=== PATIENT | male | born 1940 | race Caucasian/White ===

== ENCOUNTER 2017-07-20 09:46 | Inpatient (IN) | payer MEDICARE ==
[2017-07-19 15:39] LABS: BASOPHILS % (AUTO) 0.4 % (0-1); EOSINOPHILS # (AUTO) 0.2 X10'3 (0-0.9); EOSINOPHILS % (AUTO) 2.9 % (0-6); LYMPHOCYTES # (AUTO) 2.1 X10'3 (1.1-4.8); MEAN CORPUSCULAR HEMOGLOBIN 30.2 PG (27.0-31.0); MEAN CORPUSCULAR HGB CONC 34.6 % (33.0-36.5); MEAN CORPUSCULAR VOLUME 87.4 FL (78-98); MONOCYTES # (AUTO) 0.5 X10'3 (0-0.9); MONOCYTES % (AUTO) 7.1 % (2-12); NEUTROPHILS # (AUTO) 4.4 X10'3 (1.8-7.7); NEUTROPHILS % (AUTO) 60.6 % (42-75); PRE OP HEMATOCRIT 47.9 % (42.0-52.0); PRE OP HEMOGLOBIN 16.6 g/dL (14.0-17.9); PRE OP PLATELET COUNT 308 X10'3 (140-440); RED BLOOD COUNT 5.48 X10'6 (4.70-6.10); RED CELL DISTRIBUTION WIDTH 12.9 % (11.5-14.5)
[2017-07-19 15:43] LABS: CLARITY,URINE CLEAR (Clear); COLOR,URINE YELLOW (Yellow); GLUCOSE, URINE NEGATIVE (Neg); KETONES,URINE NEGATIVE (Neg); LEUKOCYTE ESTERASE ,URINE NEGATIVE (Neg); NITRITES, URINE NEGATIVE (Neg); OCCULT BLOOD,URINE NEGATIVE (Neg); PROTEIN,URINE NEGATIVE (Neg); UROBILINOGEN,URINE 0.2 E.U/dL (0.2-1.0)
[2017-07-19 15:51] LABS: UA COLLECTION TYPE CLN CATCH MIDSTREAM
[2017-07-19 15:53] LABS: HEMOGLOBIN A1C 5.7 % (4.5-6.2)
[2017-07-19 15:54] LABS: ALBUMIN 3.5 G/DL (3.4-5.0); ALBUMIN/GLOBULIN RATIO 0.9 (1.1-1.5); ALKALINE PHOSPHATASE 105 IU/L (46-116); BLOOD UREA NITROGEN 22 MG/DL (7-18); BUN/CREATININE RATIO 23.2 (5.4-32.0); CALCIUM 9.2 MG/DL (8.5-10.1); CHLORIDE 106 MMOL/L (99-107); CREATININE 0.95 MG/DL (0.60-1.10); PRE OP ALT 61 U/L (30-65); PRE OP ANION GAP 13 (8-16); PRE OP AST 38 U/L (10-37); PRE OP BILIRUB, TOTAL 0.4 MG/DL (0.0-1.0); PRE OP GLUCOSE 102 MG/DL (70-104); PRE OP POTASSIUM 3.9 MMOL/L (3.4-5.1); PRE OP SODIUM 142 MMOL/L (135-145); TOTAL CARBON DIOXIDE 23.4 MMOL/L (24-32); TOTAL PROTEIN 7.4 G/DL (6.4-8.2); eGFR 77 ML/MIN
[~2017-07-20] VITALS: Ht 182.9 cm; Wt 104.3 kg
[2017-07-20] VITALS (29 sets, daily range): BP systolic 115–157; BP diastolic 57–105
[~2017-07-20 09:46] MED LIST: AMLO10TA13; DICL75TA6; HYDR-3972; LOVA40TA2; METF500T4; PANT40TA4; TRAM50TA2; ZOLP10TA5
[2017-07-20] MEDS: potassium cl 20mEq in 1/2 NS 1,000 ML IV SCH ×2 (10:17→23:55)
[2017-07-20] MEDS ORDERED: acetaminophen 325mg tablet PO PRN (10:20)
[2017-07-20] MEDS ORDERED: diphenhydrAMINE 25mg capsule PO PRN ×2 (10:20)
[2017-07-20] MEDS ORDERED: bisacodyl 10mg suppository rectal RC PRN (10:20)
[2017-07-20] MEDS ORDERED: magnesium hydroxide 30ml (MOM) UD suspension PO PRN (10:20)
[2017-07-20] MEDS ORDERED: MORPHINE 2MG in 2ml NS syringe IV PRN (10:20)
[2017-07-20] MEDS ORDERED: famotidine 20mg tablet PO ONE (10:30)
[2017-07-20] MEDS ORDERED: celeCOXIB 100mg capsule PO ONE (10:30)
[2017-07-20] MEDS ORDERED: metoclopramide 5 mg/ml inj IV ONE (10:30)
[2017-07-20] MEDS ORDERED: acetaminophen 325mg tablet PO ONE (10:30)
[2017-07-20] MEDS ORDERED: cefazolin/dext.iso 2gm/50ml 50 ML IV ONE (10:30)
[2017-07-20] MEDS ORDERED: ringers solution, lacted 1,000 ML IV SCH ×2 (10:30→13:03)
[2017-07-20] MEDS ORDERED: oxyCODONE SR 10mg (sust. release) tab PO ONE (10:30)
[2017-07-20] MEDS ORDERED: gabapentin 300mg capsule PO ONE (10:30)
[2017-07-20] MEDS ORDERED: HYDROcodone/acetaminophen 10/325mg tab PO ONE (10:35)
[2017-07-20] MEDS ORDERED: LIDOcaine 1% (10mg/ml) 2ml vial ONE (10:40)
[2017-07-20] MEDS ORDERED: ceFAZolin 2gm in dextrose, iso 100 ML IV ONE (10:55)
[2017-07-20] MEDS ORDERED: MIDAZolam 5mg/5ml vial ONE (10:59)
[2017-07-20] MEDS: ceFAZolin 2gm in dextrose, iso 100 ML IV SCH ×2 (11:00→23:57)
[2017-07-20] MEDS ORDERED: fentaNYL /PF 50mcg/ml 5ml ampule ONE (11:01)
[2017-07-20] MEDS ORDERED: BUPIVAcaine/dex-water/PF 7.5 mg/ml 2ml ampul ONE (11:01)
[2017-07-20] MEDS ORDERED: succinylcholine 20mg/ml inj IV ONE (11:57)
[2017-07-20] MEDS ORDERED: rocuronium 10mg/ml inj IV ONE (11:58)
[2017-07-20] MEDS ORDERED: propofol inj 20 ML IV ONE (11:59)
[2017-07-20] MEDS ORDERED: LIDOcaine 1%/PF (10mg/ml) 5ml vial ONE (11:59)
[2017-07-20] MEDS ORDERED: LIDOcaine 2% 5ml jelly ONE (12:01)
[2017-07-20] MEDS ORDERED: vancomycin 1,000mg inj ONE (12:05)
[2017-07-20] MEDS ORDERED: epiNEPHrine 1 mg/ml inj ONE (12:05)
[2017-07-20] MEDS ORDERED: cloNIDine hcl/PF 100mcg/ml inj ONE (12:05)
[2017-07-20] MEDS ORDERED: ketorolac trometh. 30mg/ml inj. ONE (12:05)
[2017-07-20] MEDS ORDERED: ROPIVAcaine 0.5% (5mg/ml) 30ml vial ONE (12:05)
[2017-07-20] MEDS ORDERED: tranexamic acid inj. 1,000 MG in normal saline 100ml IV soln 100 ML IV ONE (12:20)
[2017-07-20] MEDS ORDERED: sevoflurane 250ml liquid IH ONE (12:21)
[2017-07-20] MEDS ORDERED: ePHEDrine 50MG/ML INJ. ONE (12:21)
[2017-07-20] MEDS: gabapentin 300mg capsule PO SCH ×2 (13:00→21:34)
[2017-07-20] MEDS ORDERED: acetaminophen 1,000mg/100ml IV 100 ML IV PRN (13:05)
[2017-07-20] MEDS ORDERED: ondansetron/PF 4mg/2ml inj IV PRN ×2 (13:05)
[2017-07-20] MEDS ORDERED: HYDROmorphone inj. 0.5 MG/0.5 ML DISP.SYRIN IV PRN (13:05)
[2017-07-20] MEDS ORDERED: ondansetron/PF 4mg/2ml inj ONE (13:26)
[2017-07-20] MEDS ORDERED: neostigmine methylsulfate 1 MG/ML 10ml vial ONE (13:32)
[2017-07-20] MEDS ORDERED: glycopyrrolate 0.2mg/ml inj ONE (13:32)
[2017-07-20] MEDS ORDERED: morphine 4 MG/ML inj SYRINge IV ONE ×2 (14:30→14:45)
[2017-07-20] MEDS ORDERED: morphine 4 MG/ML inj SYRINge IV PRN (14:44)
[2017-07-20] MEDS: oxyCODONE/APAP 10/325mg tablet PO PRN ×2 (15:10→21:57)
[2017-07-20] MEDS ORDERED: CADD PCA waste documentation MC PRN (15:40)
[2017-07-20] MEDS ORDERED: naloxone 0.4 mg/ml inj IV PRN (15:40)
[2017-07-20] MEDS ORDERED: ceFAZolin inj. 2,000 MG in normal saline 100ml IV soln 100 ML IV SCH (16:00)
[2017-07-20] MEDS: HYDROmorphone/NS 1 mg/ml CADD 50 ML IV SCH ×5 (16:01→23:00)
[2017-07-20] MEDS: ondansetron/PF 4mg/2ml inj IV PRN (20:03)
[2017-07-20] MEDS: sennosides 8.6mg tablet PO SCH (21:34)
[2017-07-20] MEDS: amLODIPine 5mg tablet PO SCH (21:34)
[2017-07-20] MEDS: ascorbic acid 500mg tablet PO SCH (21:58)
[2017-07-21] MEDS: HYDROmorphone/NS 1 mg/ml CADD 50 ML IV SCH (01:00)
[2017-07-21 02:00] VITALS: BP 150/87
[2017-07-21] MEDS: potassium cl 20mEq in 1/2 NS 1,000 ML IV SCH ×3 (02:17→18:17)
[2017-07-21] MEDS: ondansetron/PF 4mg/2ml inj IV PRN ×3 (02:18→15:28)
[2017-07-21] MEDS: oxyCODONE/APAP 10/325mg tablet PO PRN ×5 (02:18→23:06)
[2017-07-21] MEDS ORDERED: vancomycin inj 1,500 MG in normal saline 300ml IV soln IV ONE (05:30)
[2017-07-21 05:51] LABS: BASOPHILS % (AUTO) 0.2 % (0-1); EOSINOPHILS # (AUTO) 0.2 X10'3 (0-0.9); EOSINOPHILS % (AUTO) 2.5 % (0-6); HEMATOCRIT 39.7 % (42.0-52.0); HEMOGLOBIN 13.7 g/dl (14.0-17.9); LYMPHOCYTES % (AUTO) 11.1 % (21-51); MEAN CORPUSCULAR HEMOGLOBIN 30.7 PG (27.0-31.0); MEAN CORPUSCULAR HGB CONC 34.6 % (33.0-36.5); MEAN CORPUSCULAR VOLUME 88.9 FL (78-98); MEAN PLATELET VOLUME 7.8 FL (7.4-10.4); MONOCYTES # (AUTO) 0.6 X10'3 (0-0.9); MONOCYTES % (AUTO) 6.9 % (2-12); NEUTROPHILS # (AUTO) 6.8 X10'3 (1.8-7.7); NEUTROPHILS % (AUTO) 79.3 % (42-75); PLATELET COUNT 245 X10'3 (140-440); RED BLOOD COUNT 4.47 X10'6 (4.70-6.10); RED CELL DISTRIBUTION WIDTH 13.1 % (11.5-14.5); WHITE BLOOD COUNT 8.6 X10'3 (4.5-11.0)
[2017-07-21 05:58] LABS: ANION GAP 7 (8-16); CHLORIDE 107 MMOL/L (99-107); POTASSIUM 4.1 MMOL/L (3.5-5.1); SODIUM 140 MMOL/L (135-145); TOTAL CARBON DIOXIDE 25.8 MMOL/L (24-32)
[2017-07-21 06:00] VITALS: BP 118/81
[2017-07-21] MEDS: gabapentin 300mg capsule PO SCH ×3 (07:50→20:51)
[2017-07-21] MEDS: aspirin 325mg tablet PO SCH (07:50)
[2017-07-21] MEDS: multivitamins, therapeutics tablet PO SCH (07:51)
[2017-07-21] MEDS: ascorbic acid 500mg tablet PO SCH ×2 (07:51→20:51)
[2017-07-21 10:16] VITALS: BP 130/72
[2017-07-21 18:00] VITALS: BP 130/88
[2017-07-21] MEDS ORDERED: Protein Smoothie (high protein) 240ml (8oz) cup PO SCH (18:00)
[2017-07-21] MEDS: amLODIPine 5mg tablet PO SCH (20:52)
[2017-07-21] MEDS: sennosides 8.6mg tablet PO SCH (20:52)
[2017-07-21] MEDS ORDERED: pantoprazole 40mg Tablet.DR PO SCH (21:00)
[2017-07-21] MEDS ORDERED: metFORMIN 500mg tablet PO SCH (21:00)
[2017-07-21 22:00] VITALS: BP 130/67
[2017-07-22] MEDS: potassium cl 20mEq in 1/2 NS 1,000 ML IV SCH (02:17)
[2017-07-22] MEDS: oxyCODONE/APAP 10/325mg tablet PO PRN ×2 (05:23→08:54)
[2017-07-22 06:13] LABS: BASOPHILS % (AUTO) 0.3 % (0-1); EOSINOPHILS # (AUTO) 0.3 X10'3 (0-0.9); EOSINOPHILS % (AUTO) 2.1 % (0-6); HEMATOCRIT 40.8 % (42.0-52.0); HEMOGLOBIN 14.3 g/dl (14.0-17.9); LYMPHOCYTES # (AUTO) 1.5 X10'3 (1.1-4.8); LYMPHOCYTES % (AUTO) 11.5 % (21-51); MEAN CORPUSCULAR HEMOGLOBIN 30.8 PG (27.0-31.0); MEAN CORPUSCULAR HGB CONC 34.9 % (33.0-36.5); MEAN CORPUSCULAR VOLUME 88.2 FL (78-98); MEAN PLATELET VOLUME 8.4 FL (7.4-10.4); MONOCYTES % (AUTO) 7.7 % (2-12); NEUTROPHILS # (AUTO) 10.1 X10'3 (1.8-7.7); NEUTROPHILS % (AUTO) 78.4 % (42-75); PLATELET COUNT 273 X10'3 (140-440); RED BLOOD COUNT 4.63 X10'6 (4.70-6.10); WHITE BLOOD COUNT 12.9 X10'3 (4.5-11.0)
[2017-07-22] MEDS ORDERED: ASPI-1 PO (06:36)
[2017-07-22 06:49] VITALS: BP 126/68
[2017-07-22] MEDS ORDERED: WALKERFR (06:55)
[2017-07-22] MEDS: gabapentin 300mg capsule PO SCH (08:53)
[2017-07-22] MEDS: multivitamins, therapeutics tablet PO SCH (08:53)
[2017-07-22] MEDS: ascorbic acid 500mg tablet PO SCH (08:53)
[2017-07-22] MEDS: aspirin 325mg tablet PO SCH (08:54)
[2017-07-22 10:00] VITALS: BP 108/56
== END 2017-07-22 10:50 | disposition home or self-care (01) | DRG 470 ==
LOC: PAS IN 09:46 → EDSTATUS 11:15 → ORTHO 4S 20:00
PROVIDERS: ADMIT Orthopaedic Surgery; ATTEND Orthopaedic Surgery
PROC: 0SR906Z Replacement of Right Hip Joint with Oxidized Zirconium on Polyethylene Synthetic Substitute, Open Approach (ICD-10-PCS; principal; 2017-07-20 12:21)
DX: M16.11 Unilateral primary osteoarthritis, right hip (principal); E11.9 Type 2 diabetes mellitus without complications; M87.051 Idiopathic aseptic necrosis of right femur; D62 Acute posthemorrhagic anemia; K21.9 Gastro-esophageal reflux disease without esophagitis; M70.61 Trochanteric bursitis, right hip; M76.11 Psoas tendinitis, right hip; N40.0 Benign prostatic hyperplasia without lower urinary tract symptoms; E78.5 Hyperlipidemia, unspecified; I10 Essential (primary) hypertension; G89.29 Other chronic pain; M54.9 Dorsalgia, unspecified; Z79.899 Other long term (current) drug therapy; Z79.84 Long term (current) use of oral hypoglycemic drugs; Z79.82 Long term (current) use of aspirin
CPT/HCPCS: 36415; 71046; 72170; 80051; 80053; 81003; 82948; 83036; 84484; 85025; 86885; 86900; 86901; 87070; 97110; 97116; 97161; A7000; C1758; C1776; J0131; J0171; J0330; J0690; J0735; J1170; J1885; J2001; J2250; J2270; J2405; J2704; J2710; J2765; J2795; J3010; J3370; J3490; J7030; J7120

== ENCOUNTER 2021-03-18 10:36 | Emergency (ER) | payer MEDICARE ==
[~2021-03-18] VITALS: Ht 182.9 cm; Wt 102.5 kg
[~2021-03-18 10:36] MED LIST changes: +ASPI-1 PO; +METF-1203; -METF500T4; -PANT40TA4; +PANT40TA54; +WALKERFR
[2021-03-18 11:24] LABS: BASOPHILS % (AUTO) 0.5 % (0-1); EOSINOPHILS # (AUTO) 0.2 X10'3 (0-0.9); EOSINOPHILS % (AUTO) 1.9 % (0-6); HEMATOCRIT 41.6 % (42.0-52.0); HEMOGLOBIN 14.1 g/dl (14.0-17.9); LYMPHOCYTES # (AUTO) 1.7 X10'3 (1.1-4.8); LYMPHOCYTES % (AUTO) 19.5 % (21-51); MEAN CORPUSCULAR HGB CONC 34.1 g/dL (33.0-36.5); MEAN CORPUSCULAR VOLUME 88.2 FL (78-98); MEAN PLATELET VOLUME 7.7 FL (7.4-10.4); MONOCYTES # (AUTO) 0.6 X10'3 (0-0.9); MONOCYTES % (AUTO) 6.9 % (2-12); NEUTROPHILS # (AUTO) 6.1 X10'3 (1.8-7.7); NEUTROPHILS % (AUTO) 71.2 % (42-75); PLATELET COUNT 289 X10'3 (140-440); RED BLOOD COUNT 4.71 X10'6 (4.70-6.10); RED CELL DISTRIBUTION WIDTH 13.5 % (11.5-14.5); WHITE BLOOD COUNT 8.6 X10'3 (4.5-11.0)
[2021-03-18 12:13] LABS: ALANINE AMINOTRANSFERASE 25 U/L (12-78); ALBUMIN 3.3 G/DL (3.4-5.0); ALBUMIN/GLOBULIN RATIO 0.8 (1.1-1.5); ALKALINE PHOSPHATASE 138 IU/L (46-116); ASPARTATE AMINO TRANSFERASE 18 U/L (10-37); BILIRUBIN,TOTAL 0.4 MG/DL (0.1-1.0); BLOOD UREA NITROGEN 34 MG/DL (7-18); BUN/CREATININE RATIO 23.3 (5.4-32.0); CALCIUM 8.7 MG/DL (8.5-10.1); CREATININE 1.46 MG/DL (0.60-1.10); GLUCOSE 101 MG/DL (70-104); TOTAL CARBON DIOXIDE 22.7 MMOL/L (24-32); TOTAL PROTEIN 7.2 G/DL (6.4-8.2); eGFR 47 ML/MIN
[2021-03-18] MEDS ORDERED: iohexol 300mg/ml 100ml inj. ONE (12:36)
[2021-03-18 12:40] LABS: CHLORIDE 104 MMOL/L (99-107); POTASSIUM 4.6 MMOL/L (3.5-5.1)
[2021-03-18 12:41] LABS: ANION GAP 11 (8-16); SODIUM 138 MMOL/L (135-145)
[2021-03-18 13:43] VITALS: BP 125/67
[2021-03-18 14:26] LABS: CLARITY,URINE CLEAR (Clear); COLOR,URINE YELLOW (Yellow); GLUCOSE, URINE NEGATIVE (Neg); KETONES,URINE TRACE mg/dl (Neg); LEUKOCYTE ESTERASE ,URINE NEGATIVE (Neg); NITRITES, URINE NEGATIVE (Neg); OCCULT BLOOD,URINE NEGATIVE (Neg); PH,URINE 5.5 (4.8-8.0); PROTEIN,URINE NEGATIVE (Neg); UROBILINOGEN,URINE 0.2 E.U/dL (0.2-1.0)
[2021-03-18] MEDS ORDERED: MESSAGE TO NURSING PO SCH (14:33)
[2021-03-18 15:01] LABS: UA COLLECTION TYPE URINAL
[2021-03-18] MEDS ORDERED: AMOX-422 PO (15:02)
[2021-03-18] MEDS ORDERED: METR-159 PO (15:02)
[2021-03-18] MEDS ORDERED: ONDA4TAB6 PO (15:02)
[2021-03-18] MEDS ORDERED: HYDR-3965 PO (15:02)
== END 2021-03-18 15:27 | disposition home or self-care (01) ==
LOC: ER 10:37
DX: K57.92 Diverticulitis of intestine, part unspecified, without perforation or abscess without bleeding (principal); R73.03 Prediabetes; I48.91 Unspecified atrial fibrillation; I50.9 Heart failure, unspecified; Z87.19 Personal history of other diseases of the digestive system; Z90.49 Acquired absence of other specified parts of digestive tract; Z79.899 Other long term (current) drug therapy; Z79.2 Long term (current) use of antibiotics; Z79.82 Long term (current) use of aspirin
CPT/HCPCS: 36415; 74177; 80053; 81003; 85025; 99285; Q9967

== ENCOUNTER 2021-10-07 10:42 | Emergency (ER) | payer MEDICARE ==
[~2021-10-07] VITALS: Ht 182.9 cm; Wt 94.1 kg
[~2021-10-07 10:42] MED LIST changes: +ONDA4TAB6 PO
[2021-10-07 10:43] VITALS: BP 127/73
[2021-10-07 11:14] LABS: BASOPHILS % (AUTO) 0.4 % (0-1); EOSINOPHILS % (AUTO) 0.4 % (0-6); HEMATOCRIT 42.9 % (42.0-52.0); HEMOGLOBIN 14.7 g/dl (14.0-17.9); LYMPHOCYTES # (AUTO) 1.3 X10'3 (1.1-4.8); LYMPHOCYTES % (AUTO) 11.9 % (21-51); MEAN CORPUSCULAR HEMOGLOBIN 29.6 PG (27.0-31.0); MEAN CORPUSCULAR HGB CONC 34.3 g/dL (33.0-36.5); MEAN CORPUSCULAR VOLUME 86.5 FL (78-98); MEAN PLATELET VOLUME 7.5 FL (7.4-10.4); MONOCYTES # (AUTO) 0.8 X10'3 (0-0.9); MONOCYTES % (AUTO) 7.6 % (2-12); NEUTROPHILS # (AUTO) 8.7 X10'3 (1.8-7.7); NEUTROPHILS % (AUTO) 79.7 % (42-75); PLATELET COUNT 270 X10'3 (140-440); RED BLOOD COUNT 4.96 X10'6 (4.70-6.10); RED CELL DISTRIBUTION WIDTH 13.6 % (11.5-14.5); WHITE BLOOD COUNT 10.9 X10'3 (4.5-11.0)
[2021-10-07 11:25] LABS: ALANINE AMINOTRANSFERASE 19 U/L (12-78); ALBUMIN 2.9 G/DL (3.4-5.0); ALBUMIN/GLOBULIN RATIO 0.7 (1.1-1.5); ALKALINE PHOSPHATASE 134 IU/L (46-116); ANION GAP 9 (8-16); ASPARTATE AMINO TRANSFERASE 14 U/L (10-37); BILIRUBIN,TOTAL 0.5 MG/DL (0.1-1.0); BLOOD UREA NITROGEN 26 MG/DL (7-18); BUN/CREATININE RATIO 18.1 (5.4-32.0); CALCIUM 8.5 MG/DL (8.5-10.1); CHLORIDE 104 MMOL/L (99-107); CREATININE 1.44 MG/DL (0.60-1.10); GLUCOSE 94 MG/DL (70-104); POTASSIUM 4.3 MMOL/L (3.5-5.1); SODIUM 137 MMOL/L (135-145); TOTAL CARBON DIOXIDE 24.2 MMOL/L (24-32); TOTAL PROTEIN 6.8 G/DL (6.4-8.2); eGFR 47 ML/MIN
[2021-10-07] MEDS ORDERED: AMIO200T61 PO (16:13)
== END 2021-10-07 16:17 | disposition home or self-care (01) ==
LOC: ER 10:42
DX: R00.2 Palpitations (principal); R11.0 Nausea; R53.83 Other fatigue; R06.02 Shortness of breath; R42 Dizziness and giddiness; I10 Essential (primary) hypertension; I48.91 Unspecified atrial fibrillation; I50.9 Heart failure, unspecified; Z90.49 Acquired absence of other specified parts of digestive tract; Z79.82 Long term (current) use of aspirin; Z79.899 Other long term (current) drug therapy
CPT/HCPCS: 36415; 71045; 80053; 83880; 84484; 85025; 93005; 99285

== ENCOUNTER 2023-08-23 08:09 | Outpatient (CLI) | payer MEDICARE, MEDICAID | END 2023-08-23 23:59 | disposition home or self-care (01) | LOC: MRI 08:09 | PROVIDERS: ATTEND Pediatrics Sports Medicine | DX: M16.12 Unilateral primary osteoarthritis, left hip (principal); M70.62 Trochanteric bursitis, left hip; M89.8X8 Other specified disorders of bone, other site; M25.852 Other specified joint disorders, left hip; M25.552 Pain in left hip | CPT/HCPCS: 73721 ==

== ENCOUNTER 2023-12-16 18:16 | Emergency (ER) | payer MEDICARE, MEDICAID ==
[~2023-12-16] VITALS: Ht 175.3 cm; Wt 90.9 kg
[2023-12-16 18:38] LABS: BASOPHILS # (AUTO) 0.1 X10'3 (0-0.2); BASOPHILS % (AUTO) 0.5 % (0-1); EOSINOPHILS # (AUTO) 0.2 X10'3 (0-0.9); EOSINOPHILS % (AUTO) 1.3 % (0-6); HEMATOCRIT 45.5 % (42.0-52.0); HEMOGLOBIN 15.1 g/dl (14.0-17.9); LYMPHOCYTES # (AUTO) 2.3 X10'3 (1.1-4.8); LYMPHOCYTES % (AUTO) 17.2 % (21-51); MEAN CORPUSCULAR HGB CONC 33.2 g/dL (33.0-36.5); MEAN CORPUSCULAR VOLUME 93.2 FL (78-98); MEAN PLATELET VOLUME 7.8 FL (7.4-10.4); MONOCYTES # (AUTO) 0.8 X10'3 (0-0.9); NEUTROPHILS # (AUTO) 9.9 X10'3 (1.8-7.7); PLATELET COUNT 238 X10'3 (140-440); RED BLOOD COUNT 4.88 X10'6 (4.70-6.10); RED CELL DISTRIBUTION WIDTH 14.4 % (11.5-14.5); WHITE BLOOD COUNT 13.3 X10'3 (4.5-11.0)
[2023-12-16 19:05] LABS: ALBUMIN 3.6 G/DL (3.4-5.0); ANION GAP 5 (8-16); BLOOD UREA NITROGEN 21 MG/DL (7-18); BUN/CREATININE RATIO 14.7 (10.0-20.0); CALCIUM 9.3 MG/DL (8.5-10.1); CHLORIDE 109 MMOL/L (99-107); CREATININE 1.43 MG/DL (0.60-1.10); GLUCOSE 123 MG/DL (70-104); PRO BRAIN NATRIURETIC PEPTIDE 224 PG/ML (0-450); SODIUM 141 MMOL/L (135-145); TOTAL CARBON DIOXIDE 27.2 MMOL/L (24-32); eCRCL 40 ML/MIN; eGFR 47 ML/MIN
[2023-12-16] MEDS: LIDOcaine 2% Viscous 15ml cup MM ONE (21:06)
[2023-12-16] MEDS: mag hydrox/Alum hydrox/simeth 30ml oral suspension PO ONE (21:06)
[2023-12-16] MEDS: famotidine 20mg tablet PO ONE (21:39)
[2023-12-16] MEDS: ondansetron 4mg rapidly disintigrating tab PO ONE (21:40)
[2023-12-16] MEDS: HYDROcodone/acetaminophen 5mg/325mg tablet PO ONE (21:40)
[2023-12-16 21:57] LABS: ALANINE AMINOTRANSFERASE 24 U/L (12-78); ALBUMIN 3.2 G/DL (3.4-5.0); ALBUMIN/GLOBULIN RATIO 0.9 (1.1-1.5); ALKALINE PHOSPHATASE 134 IU/L (46-116); ANION GAP 11 (8-16); ASPARTATE AMINO TRANSFERASE 19 U/L (10-37); BILIRUBIN,TOTAL 0.7 MG/DL (0.1-1.0); BLOOD UREA NITROGEN 26 MG/DL (7-18); BUN/CREATININE RATIO 18.1 (10.0-20.0); CHLORIDE 108 MMOL/L (99-107); CREATININE 1.44 MG/DL (0.60-1.10); GLUCOSE 104 MG/DL (70-104); POTASSIUM 4.8 MMOL/L (3.5-5.1); SODIUM 142 MMOL/L (135-145); TOTAL CARBON DIOXIDE 23.3 MMOL/L (24-32); TOTAL PROTEIN 6.6 G/DL (6.4-8.2); eCRCL 40 ML/MIN; eGFR 47 ML/MIN
[2023-12-16 23:17] LABS: LIPASE 27 U/L (16-77)
[2023-12-16] MEDS ORDERED: OMEP-419 PO (23:47)
[2023-12-17 00:01] VITALS: BP 151/76; PULSE 62; RESP 15; TEMP 98.5; O2SAT 100
== END 2023-12-17 00:07 | disposition home or self-care (01) ==
LOC: ER 18:17
DX: R10.13 Epigastric pain (principal); I48.91 Unspecified atrial fibrillation; I50.9 Heart failure, unspecified; Z88.8 Allergy status to other drugs, medicaments and biological substances; Z79.899 Other long term (current) drug therapy; Z79.84 Long term (current) use of oral hypoglycemic drugs; Z79.82 Long term (current) use of aspirin; Z90.49 Acquired absence of other specified parts of digestive tract
CPT/HCPCS: 36415; 71045; 74176; 80048; 80053; 83690; 83880; 84484; 85025; 93005; 99285

== ENCOUNTER 2025-03-14 07:43 | Inpatient (IN) | payer MEDICARE, MEDICAID ==
[~2025-03-14] VITALS: Ht 162.6 cm; Wt 92.5 kg
[2025-03-14] VITALS (10 sets, daily range): BP systolic 132–140; BP diastolic 74–84; PULSE 70–85; RESP 13–24; TEMP 98.3–98.7; O2SAT 70–100
[~2025-03-14 07:43] MED LIST changes: -LOVA40TA2; +LOVA40TA2 PO; +OMEP-419 PO
--- NOTE | 2025-03-14 08:23 | Physician Documentation ---
History of Present Illness ~ Chief Complaint: Shortness of Breath Stated Complaint: PNEUMONIA Time Seen by MD: 07:53 OK to notify your PCP?: Yes Mode of Arrival: POV, Ambulatory HPI 84-year-old gentleman with a history of dyslipidemia, [id number] cognitive decline, COPD, CHF, atrial fibrillation on warfarin, hypertension, type 2 diabetes mellitus came in the emergency room because of dyspnea on exertion with cough with sputum expectoration of yellowish sputum and failure to turn around with outpatient medication including Z-Obey. The patient denies chest pain other than pleuritic chest pain. He did have fever but no chills but it got better. He is not able to lie flat because of difficulty breathing. No nausea vomiting diarrhea. Denies abdominal pain. No constipation or diarrhea. No trauma or injuries. Medication Reconciliation Allergies: Coded Allergies: doxycycline (Verified Allergy, Severe, 03/14/25) THINS BLOOD WHERE PREVIOUS DOCTOR SAID FALL WOULD BE VERY DANGEROUS nirmatrelvir (Verified Allergy, Severe, 03/14/25) CAUSED SEIZURE LIKE SYMPTOMS, WENT UNCONSCIOUS AND LOST MEMORY ritonavir (Verified Allergy, Severe, 03/14/25) CAUSED SEIZURE LIKE SYMPTOMS, WENT UNCONSCIOUS AND LOST MEMORY codeine (Verified Allergy, Unknown, 03/14/25) gabapentin (Verified Allergy, Unknown, 03/14/25) Scheduled Amiodarone Hcl (Cordarone), 1 TAB PO DAILY, (Reported) Atorvastatin Calcium (Atorvastatin Calcium), 1 TAB PO DAILY, (Reported) Budesonide/Formoterol Fumarate (Symbicort 80-4.5 Mcg Inhaler), 2 PUFFS INH Q12H Guaifenesin (Mucinex), 600 MG PO Q8H Levofloxacin (Levofloxacin), 1 TAB PO DAILY Levothyroxine Sodium (Levoxyl), 1 TAB PO DAILY, (Reported) Losartan Potassium (Losartan Potassium), 100 MG PO DAILY Pantoprazole Sodium (Pantoprazole Sodium), HS, (Reported) Prednisone (Prednisone), 0 PO BID Sertraline HCl (Sertraline HCl), 1 TAB PO DAILY, (Reported) Warfarin Sodium (Warfarin Sodium), 1 TAB PO DAILY, (Reported) Scheduled PRN Cyclobenzaprine HCl (Cyclobenzaprine HCl), 1 TAB PO HS PRN for pain, (Reported) albuterol inhaler (Pro-Air Inhaler), 1-2 PUFFS PO Q4H PRN for shortness of breath Miscellaneous Medications Tramadol Hcl (Tramadol Hcl), (Reported) Discontinued Medications Amlodipine Besylate (Amlodipine Besylate), HS, (Reported) Discontinued Reason: patient no longer taking Aspirin (Aspirin), 325 MG PO Q24H@0830 Discontinued Reason: patient no longer taking Diclofenac Sodium (Diclofenac Sodium), HS, (Reported) Discontinued Reason: patient no longer taking Hydrocodone Bit/Acetaminophen (Hydrocodon-Acetaminophn 10-325 tablet), (Reported) Discontinued Reason: patient no longer taking Metformin HCl (Metformin HCl), HS, (Reported) Discontinued Reason: patient no longer taking Omeprazole (Omeprazole), 1 TAB PO DAILY Discontinued Reason: patient no longer taking Ondansetron Hcl (Zofran), 1 TAB PO Q6H Discontinued Reason: patient no longer taking Zolpidem Tartrate* (Ambien*), (Reported) Durable Medical Equipment Walker, Front Wheeled (Walker, Front-wheeled), APPLIC, (DME) Past Medical History Past Medical History: Atrial Fibrillation, Congestive Heart Failure, Diverticulitis Past Surgical History: cholecystectomy Alcohol Use: None Drug Use: none Lives with: Family Lives In: Home Review of Systems ROS As stated above in the HPI, otherwise all systems are reviewed and negative. Physical Exam Vital Signs: Temperature: 97.8, Source: Oral, Heart Rate: 82, Respiratory Rate: 20, BP: 156/84, Pulse Oximetry: 97, Weight: 92.500 Oxygen Flow Rate: 0 Physical Exam Reviewed vital signs and they are well within normal range. Const: Not in pain but mild to moderate respiratory distress Head: Atraumatic Eyes: Normal Conjunctiva ENT: Normal External Ears, Nose and Mouth. Moist mucous membranes Neck: Full range of motion. No meningismus Resp: Diminished breath sounds with prolonged expiration bilaterally. Normal work of breathing Cardio: Regular rate and rhythm, no murmurs. Skin well perfused Abd: Soft, non-tender, non-distended. Normal bowel sounds. No rebound or guarding Skin: No petechiae or rashes. Warm and dry Back: No midline or flank tenderness Ext: No cyanosis, or edema Neuro: Awake and alert Psych: Normal Mood and Affect Procedures Additional Procedures Procedure Note ED MD interpretation of EKG done at 07:58 hours shows sinus rhythm at a rate of 76 with premature atrial complexes. Left axis deviation and normal intervals. No acute ischemic changes. Progress Results/Orders Results/Orders Orders - RITESH MITCHELL MD Chest,Single View (03/14/25 07:53) Monitor (03/14/25 07:53) Saline Lock (03/14/25 07:53) Oxygen (03/14/25 07:53) Electrocardiogram (03/14/25 07:53) Culture Blood (03/14/25 08:28) Svn Treatment (03/14/25 08:28) Covid19 Binax Poc Result Entry (03/14/25 08:28) Page Hospitalist (03/14/25 09:35) Completed Orders - RITESH MITCHELL MD Chest,Single View (03/14/25 07:53) Cbc/Diff (03/14/25 07:53) BMP (03/14/25 07:53) PBNP (03/14/25 07:53) Electrocardiogram (03/14/25 07:53) Hs Troponin I W Calculations (03/14/25 07:53) Hs Troponin I W Calculations (03/14/25 09:53) Hs Troponin I W Calculations (03/14/25 10:53) MG (03/14/25 08:07) Pt Inr (03/14/25 08:07) PTT (03/14/25 08:07) Procalcitonin (03/14/25 08:28) Influenza Type A&B Rapid Test (03/14/25 08:28) Lacticsepsis (03/14/25 08:28) Normal Saline 1000ml (0.9% Sodium Chlori (03/14/25 08:30) Methylprednisolone Sod Succ (Solumedrol (03/14/25 08:30) Ipratropium/Albuterol Nebule (Ipratrop/A (03/14/25 08:30) Ceftriaxone/Q4j-Lmcvphbt 1gm (Rocephin 1 (03/14/25 08:30) Ceftriaxone/U9p-Eovzvuez 1gm (Rocephin 1 (03/14/25 08:30) Levofloxacin-Levaquin 500mg/D5 (Levaquin (03/14/25 08:30) Ceftriaxone 2gm/D5w 50ml Bag (Rocephin 2 (03/14/25 09:10) Lactic,2hr (03/14/25 10:17) Vital Signs 03/14/25 03/14/25 03/14/25 03/14/25 07:49 08:07 08:20 09:03 Temp 97.8 Pulse 82 70 Resp 20 20 18 B/P (MAP) 156/84 Pulse Ox 97 99 70 O2 Delivery Room Air* Room Air* O2 Flow Rate 0 0 0 FiO2 21 N/A 03/14/25 03/14/25 09:03 09:18 Pulse 73 70 Resp 20 17 B/P (MAP) 140/76 (97) Pulse Ox 94 93 O2 Delivery Room Air* O2 Flow Rate 0 FiO2 N/A Laboratory Tests Test 03/14/25 08:13 03/14/25 09:18 03/14/25 09:45 03/14/25 09:46 White Blood Count 11.8 H Red Blood Count 4.81 Hemoglobin 14.6 Hematocrit 43.0 Mean Corpuscular Volume 89.4 Mean Corpuscular Hemoglobin 30.4 Mean Corpuscular Hemoglobin Concent 34.0 Red Cell Distribution Width 15.5 H Platelet Count 219 Mean Platelet Volume 7.3 L Neutrophils (%) (Auto) 87.9 H Lymphocytes (%) (Auto) 8.0 L Monocytes (%) (Auto) 3.4 Eosinophils (%) (Auto) 0.1 Basophils (%) (Auto) 0.6 Neutrophils # (Auto) 10.4 H Lymphocytes # (Auto) 0.9 L Monocytes # (Auto) 0.4 Eosinophils # (Auto) 0.0 Basophils # (Auto) 0.1 CBC Comment Prothrombin Time 18.4 H INR International Normalized Ratio 1.9 Activated Partial Thromboplast Time 33 H Coagulation Comments Sodium Level 140 Potassium Level 4.4 Chloride Level 107 Carbon Dioxide Level 25.4 Anion Gap 8 Blood Urea Nitrogen 25 H Creatinine 1.44 H Estimated GFR/1.73 m2 47 BUN/Creatinine Ratio 17.4 Glucose Level 112 H Lactic Acid Level 3.1 H Calcium Level 8.4 L Magnesium Level 2.1 Troponin I High Sensitivity 22 23 Pro-B-Type Natriuretic Peptide 420 Albumin 2.8 L Procalcitonin < 0.05 Chemistry Comments Troponin I High Sens Percent Delta 4 Troponin I Hi Sens Absolute Change 1 SARS-CoV-2 Antigen (Rapid) Negative Influenza Type A Antigen Negative Influenza Type B Antigen Negative Test 03/14/25 10:24 Troponin I High Sensitivity 26 Troponin I High Sens Percent Delta 13 Troponin I Hi Sens Absolute Change 3 Microbiology Date/Time Source Procedure Growth Status 03/14/25 09:18 Blood Arm Right Blood Culture - Preliminary NO GROWTH AFTER 3 DAYS Resulted Medical Decision Making Additional information obtaine: old records, family Findings During the physical examination, the findings suggestive of acute life- threatening condition such as JVD, tracheal deviation, acidotic breathing, noisy stridorous breath sounds, pulses paradoxus, muffled heart sounds, unequal breath sounds, abdominal rigidity and rebound tenderness, focal neurological deficits, cool clammy skin, severe hypotension, severe tachycardia or bradycardia are absent. My physical examination including my point of care ultrasound does not point to the diagnosis of congestive heart failure. The patient has been treated as an outpatient for five days and not improving. His lab results: WBC 11.8 H&H 14.6 and 43 platelets 219. Sodium 140 potassium 4.4 chloride 107 bicarb 25.4 BUN 25 creatinine one point 0 four and glucose 122. ProBNP is 420 and troponin is 22. His EKG is nonischemic. Chest x-ray does not show any acute cardiopulmonary process per radiologist. The patient was treated with IV antibiotics IV steroid and nebulization therapy and he does improved. Because of protracted nature of this acute exacerbation of COPD I will like to admit the patient. DISCLAIMER Inadvertent spelling and grammatical errors,inadvertent cut off machine operator errors,syntax errors, grammatical errors, and spelling errors are likely due to EMR/dictation software use and do not reflect on the overall quality of patient care. Note that the electronic time recorded on this note does not necessarily reflect the actual time of the patient encounter. Heart Score: 3 Differential Dx:Considerations: Include: bronchitis, CHF, COPD, myocardial infarction, pneumonia, pneumonitis, pneumothorax, pulmonary embolism, respiratory distress, upper resp. infection Departure Disposition: ADMITTED INPATIENT Impression: Primary Impression: Acute exacerbation of chronic obstructive airways disease Condition: Improved Referrals: NO PRIMARY CARE PROVIDER (PCP) Prescriptions albuterol inhaler (Pro-Air Inhaler) 8.5 Gm Inhaler 1-2 PUFFS PO Q4H PRN for shortness of breath, #1 INH Prov: EMMANUEL SCHMITZ, [facility] 03/17/25 Budesonide/Formoterol Fumarate (Symbicort 80-4.5 Mcg Inhaler) 80 Mcg-4.5 Mcg/Actuation Hfa.aer.ad 2 PUFFS INH Q12H for 30 Days, #2 UNIT 0 Refills Prov: EMMANUEL SCHMITZTIK, [facility] 03/17/25 Levofloxacin (Levofloxacin) 750 Mg Tablet 1 TAB PO DAILY for 5 Days, #5 TAB [facility]: [facility], [facility] 03/17/25 Guaifenesin (Mucinex) 600 Mg Tablet.sa 600 MG PO Q8H for 7 Days, #21 TAB.SR Prov: [facility], [facility] 03/17/25 Losartan Potassium (Losartan Potassium) 50 Mg Tablet 100 MG PO DAILY for 30 Days, #60 TAB Prov: YANEMMANUEL TAN JERAMY, [facility] 03/17/25 Prednisone (Prednisone) 10 Mg Tablet 0 PO BID for 30 Days, #70 TAB Take 4 tablets daily for next 5 days for pneumonia. Then continue back on prednisone 10 mg twice daily as recommended by your PCP. Prov: EMMANUEL SCHMITZ JERAMY, [facility] 03/17/25 Signature Scribe Signature: x Attestation: RITESH Mota MD Mar 14, 2025 08:23
[2025-03-14 08:28] LABS: MEAN PLATELET VOLUME 7.3 FL (7.4-10.4); RED CELL DISTRIBUTION WIDTH 15.5 % (11.5-14.5)
[2025-03-14] MEDS: CefTRIAXone/D5W-Rocephin 1gm 50 ML IV ONE ×2 (08:30)
--- NOTE | 2025-03-14 08:30 | RADIOLOGY REPORT ---
CHEST RADIOGRAPH Indication: CP Technique: Single frontal view of the chest was obtained Comparison: DI CHEST,SINGLE VIEW on DOS: 12/16/23, CHEST,SINGLE VIEW on DOS: 10/07/21 FINDINGS: Lines and Tubes: None Lungs: No focal consolidation. Pleura: No effusion. No pneumothorax. Cardiomediastinal contours: Unremarkable Bones: No acute osseous abnormality. IMPRESSION: No acute cardiopulmonary disease.
[2025-03-14 08:35] LABS: APTT 33 SECONDS (22-32); INR 1.9 INR
[2025-03-14 08:46] LABS: CREATININE 1.44 MG/DL (0.60-1.10); PRO BRAIN NATRIURETIC PEPTIDE 420 PG/ML (0-450); TOTAL CARBON DIOXIDE 25.4 MMOL/L (24-32); eCRCL 33 ML/MIN; eGFR 47 ML/MIN
--- NOTE | 2025-03-14 08:48 | ELECTROCARDIOGRAPH REPORT ---
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 Kimani Ruiz Measurements Intervals [place] Rate: 76 P: -10 AR: 182 QRS: -34 QRSD: 109 T: 31 QT: 418 QTc: 471 Interpretive Statements Sinus rhythm Atrial premature complex Left axis deviation Abnormal R-wave progression, early transition Borderline T wave abnormalities Electronically Signed On 03-14-2025 18:05:[address] Kimani Ruiz Please click the below link to view image of tracing.
[2025-03-14] MEDS: ipratropium/albuterol 3ml nebule NEB ONE (09:00)
[2025-03-14] MEDS: CefTRIAXone 2gm/D5W 50ml BAG 50 ML IV ONE (09:20)
[2025-03-14] MEDS: normal saline 1000ml 1,000 ML IV SCH ×2 (09:21→13:35)
[2025-03-14] MEDS: levoFLOXACIN-Levaquin 500mg/D5 100 ML IV ONE (10:21)
[2025-03-14] MEDS ORDERED: magnesium sulf-water 2g/50mL 50 ML IV PRN (10:35)
[2025-03-14] MEDS ORDERED: potassium Cl 40MEQ/1/2NS 520ml 520 ML IV PRN (10:35)
[2025-03-14] MEDS ORDERED: potassium Cl 20 mEq SR tablet PO PRN ×2 (10:35)
[2025-03-14] MEDS ORDERED: mag hydrox/Alum hydrox/simeth 30ml oral suspension PO PRN (10:35)
[2025-03-14] MEDS ORDERED: magnesium hydroxide 30ml (MOM) UD suspension PO PRN (10:35)
[2025-03-14] MEDS ORDERED: ondansetron/PF 4mg/2ml inj IV PRN (10:35)
[2025-03-14] MEDS ORDERED: magnesium Cl slow-release 64mg tablet PO PRN (10:35)
[2025-03-14] MEDS ORDERED: magnesium sulf-water 4G/100mL 100 ML IV PRN (10:35)
[2025-03-14 10:38] LABS: INFLUENZA TYPE A ANTIGEN RAPID NEGATIVE (Negative); INFLUENZA TYPE B ANTIGEN RAPID NEGATIVE (Negative)
[2025-03-14] MEDS ORDERED: AMIO200T76 PO (12:29)
[2025-03-14] MEDS ORDERED: WARF2.5T82 PO (12:29)
[2025-03-14] MEDS ORDERED: LEVO50TA66 PO (12:29)
[2025-03-14] MEDS ORDERED: SERT-432 PO (12:29)
[2025-03-14] MEDS ORDERED: ATOR40TA72 PO (12:29)
[2025-03-14] MEDS ORDERED: CYCL-920 PO (12:29)
[2025-03-14] MEDS ORDERED: PRED10TA PO (12:29)
[2025-03-14] MEDS ORDERED: ALBU10.7 (12:35)
--- NOTE | 2025-03-14 14:17 | RADIOLOGY REPORT ---
Indication: SOB Technique: CT axial images of the chest are obtained without contrast. Coronal and sagittal reformats were obtained. Radiation Dose Information: CTDI volume is 19 mGy. Dose-length product is 737 mGy*cm Comparison: None FINDINGS: Trachea patent. No pneumothorax. Pulmonary emphysematous changes.m 4 mm right upper lobe solid nodule. Heart normal in size. Coronary artery calcification disease. Aortic atherosclerotic disease. No supraclavicular or axillary lymphadenopathy. Cholecystectomy. 2 mm nonobstructing left renal calculus. Moderate Thoracic degenerative disc disease. Sjxf-vx-bjyfhvsy facet hypertrophic changes. IMPRESSION: Limited evaluation without contrast. No pulmonary airspace consolidation. Pulmonary emphysematous changes. 4 mm right upper lobe solid pulmonary nodule. Recommend follow-up per Fleischner society criteria guidelines. Coronary artery calcification disease. Other findings as described.
[2025-03-14] MEDS ORDERED: ipratropium/albuterol 3ml nebule NEB PRN (14:50)
[2025-03-14] MEDS: ipratropium/albuterol 3ml nebule NEB SCH (15:06)
--- NOTE | 2025-03-14 15:10 | HISTORY AND PHYSICAL-Residence ---
History & Physical Providers to CC Resident Creating Document: RENE JONESMITALITHIAGO DEWITT CC: YAZMIN MAGDALENO MD ~ History of Present Illness Reason for Admit\Complaint: Shortness of breaths/cough History of Present Illness Patient is an 84-year-old male with a history of CHF, AFib, spinal stenosis, osteoarthritis and hypothyroidism who came to the ED due to increasing shortness of breath and cough. Patient report that he initially started with a nagging cough, productive of scant yellow sputum on Wednesday02/28/2025, on Wednesday of that week he attended [facility], where after evaluation was discharged home without treatment. He states he was posteriorly he received a call regarding his chest x-rays results and he was started on oral azithromycin which she took for 5 days without improvement. Patient was also prescribed a round of Augmentin which he was supposed to start today, but decided to come to our ER instead. Patient also reports that since onset of symptoms he has been experiencing worsened shortness of breath at rest, exacerbated by walking, accompanied with orthopnea, he denies PND. He does report being fatigued which along with shortness of breaths has limited his ability to walk, even using his walker. He denies fevers or chills. His daughter does report he had another episode of pneumonia in December which resolved with azithromycin. In ED, patient received IV ceftriaxone and levofloxacin, as well as breathing treatment with DuoNeb and 1 L of IV NS. Allergies: Coded Allergies: doxycycline (Verified Allergy, Severe, 03/14/25) THINS BLOOD WHERE PREVIOUS DOCTOR SAID FALL WOULD BE VERY DANGEROUS nirmatrelvir (Verified Allergy, Severe, 03/14/25) CAUSED SEIZURE LIKE SYMPTOMS, WENT UNCONSCIOUS AND LOST MEMORY ritonavir (Verified Allergy, Severe, 03/14/25) CAUSED SEIZURE LIKE SYMPTOMS, WENT UNCONSCIOUS AND LOST MEMORY codeine (Verified Allergy, Unknown, 03/14/25) gabapentin (Verified Allergy, Unknown, 03/14/25) Home Medications Home Medications Active Walker, Front-wheeled (Device) 1 Each Ea Applic Reported Airsupra 90-80 Mcg Inhaler (Albuterol Sulfate/Budesonide) 90 Mcg-80 Mcg/Actuation Hfa.aer.ad Prednisone (Prednisone) 10 Mg Tablet 1 Tab PO BID Cyclobenzaprine HCl 5 Mg Tablet 1 Tab PO HS PRN Levoxyl (Levothyroxine Sodium) 50 Mcg Tablet 1 Tab PO DAILY Atorvastatin Calcium 40 Mg Tablet 1 Tab PO DAILY Sertraline HCl 25 Mg Tablet 1 Tab PO DAILY Warfarin Sodium 2.5 Mg Tablet 1 Tab PO DAILY Cordarone (Amiodarone HCl) 200 Mg Tablet 1 Tab PO DAILY Lovastatin 40 Mg Tablet 100 Mg PO HS Ambien* (Zolpidem Tartrate) 10 Mg Tablet Tramadol Hcl (Tramadol HCl) 50 Mg Tablet Pantoprazole Sodium 40 Mg Tablet.dr WEBER Past Medical History Past Medical History CHF AFib Spinal stenosis Osteoarthritis Hypothyroidism Past Surgical History Surgical History Comment Unspecified back surgery Orthopedic right ankle surgery Appendectomy Cholecystectomy Right hip replacement Family History Family History: FH: stroke Brother TIAs Brother Past Social History Smoking: Non-Smoker Alcohol Use: None Drug Use: None Lives with: Family (Two daughters) Lives In: Home ROS ROS All systems were reviewed and found negative except for pertinent positives mentioned in HPI Exam Vitals: Vital Signs Date Time Temp Pulse Resp B/P (MAP) Pulse Ox O2 Delivery O2 Flow Rate FiO2 03/14/25 11:17 97.8 75 15 123/90 (101) 96 0 N/A 03/14/25 09:03 Room Air* General: General: awake, alert oriented to place, time, and person HEENT: Hard of hearing, No pallor present, no icterus, moist mucous membranes Neck: No masses and tenderness Resp: Mildly labored. Faint crackles heard on both basis, no wheezes or rhonchi Chest: Limited expansion due to nagging cough Cardiovascular: Limited auscultation due to body habitus, regular rate and rhythm, normal S1 and S2 without murmur, rub or gallop Abdomen: Soft and nontender, no organomegaly, no guarding and rigidity, bowel sounds present Neuro: No focal weakness in the upper and lower limb muscles, power of the muscles 5/5 bilateral upper and lower extremities, normal reflexes bilaterally. Cranial nerves intact Extremities: No cyanosis,clubbing or edema Skin: Warm and Dry. No lesions Psych: Normal affect and mood. Cooperative with exam Diagnostic Data Last Recorded Lab Results: 03/14/25 0813 03/14/25 0813 Diagnostic Data: Laboratory Tests Test 03/14/25 08:13 Prothrombin Time 18.4 SECONDS (9.0-12.0) H INR International Normalized Ratio 1.9 INR Activated Partial Thromboplast Time 33 SECONDS (22-32) H Coagulation Comments Advance Care Planning Advanced Care plannin - 30 Minutes Additional Plan Patient is a 84-year-old male with multiple medical conditions, on daily prednisone for spinal stenosis and prior pneumonia this year, admitted for evaluation and management of pneumonia with failed outpatient treatment. Sepsis 2/2 bacterial pneumonia, community-acquired COPD/emphysema, in exacerbation Patient remained hemodynamically stable, with no oxygen requirement in ED White count and lactic are elevated, procalcitonin is normal\ Influenza and COVID tests are negative Wells score with low probability for PE. We wait on CTA for now Chest x-ray shows mild pulmonary congestion CT scan of the chest shows emphysematous changes but no consolidations Preliminary blood cultures are negative Received ceftriaxone and levofloxacin, 1L of IVNS and 125mg of Solu-Medrol in ED Continue Solu-Medrol 60 mg b.i.d., hold home prednisone Will give another L of IV NS, and continue maintenance at 100 cc/hour Start Zosyn Start Mucinex DuoNebs q.4 scheduled and q.2h p.r.n. Incentive spirometer Q 1 hour Monitor for signs of fluid overload Continue monitoring white count and lactic acid Chronic heart failure with preserved ejection fraction, not in exacerbation Hypertrophic cardiomyopathy Paroxysmal Atrial fibrillation, currently NSR Hypertension Echocardiogram shows hyperdynamic left ventricle with the EF of 75% Will continue home medications once med rec is completed According to external meds patient is on amiodarone and losartan. Will confirm Continue warfarin Monitor PT INR Pending TSH, A1c and lipid panel CKD III Creatinine is at baseline Continue monitoring CMP Spinal stenosis Osteoarthritis Continue home tramadol p.r.n. Hold home prednisone Hypothyroidism Will continue home levothyroxine once med rec is completed Insomnia Continue home Ambien Code Status: DNR DVT prophylaxis: Heparin Analgesia/sedation: Tramadol Nutrition: Heart healthy diet PT: Ordered Prognosis: Guarded Disposition: Admit to PCU with tele monitoring. Continue medical management Thiago Armstrong MD Internal Medicine Resident PGY-2 Date of Service: Mar 14, 2025 Billing Provider: YAZMIN MAGDALENO MD Common Visit Codes: 90739-EEXTOWU INP/OBS CARE (HIGH) Secondary Visit Codes: 78782-[id number] CARE PLAN 30 MINUTES THIAGO JOHNS Mar 14, 2025 15:10 YAZMIN MAGDALENO MD Mar 19, 2025 14:35
[2025-03-14] MEDS: guaiFENesin ER 600mg tablet PO SCH (17:34)
[2025-03-14] MEDS: piperacillin/tazo 4.5gm/100ml 100 ML IV SCH (17:35)
[2025-03-14] MEDS: normal saline 1000ml 1,000 ML IV ONE (17:35)
--- NOTE | 2025-03-14 17:45 | CARDIOLOGY REPORT ---
APPROVED REPORT EXAM: Comprehensive 2D, Doppler, and color-flow Echocardiogram. Patient Location: ER4 Blood Pressure: 123 / 90 mmHg Heart Rate: 72 bpm Rhythm: SINUS Indications PNEUMONIA CONGESTIVE HEART FAILURE Transfer Engineer: Yobani Bruce MD Previous echo: 02/28/24 CVC UNK EF: 53%; nlLV; thcikAV; nlLA; nlRA; 2D Dimensions RVDd 3.0 cm LA Diam 4.2 cm IVSd 1.4 (0.7-1.1cm) LVDd 3.8 cm PWd 1.3 (0.7-1.1cm) LVOT Diameter 2.11 (1.8-2.4cm) Ao Asc Diam. 3.70 cm M-Mode Dimensions Aortic Root 4.04 (2.2-3.7cm) Aortic Cusp Exc 2.26 (1.5-2.0cm) Aortic Valve AoV Peak Humberto. 211.4 cm/s AoV VTI 36.9 cm AO Peak GR. 17.9 mmHg AO Mean GR. 9 mmHg LVOT VTI 29.16 cm LVOT Peak Humberto. 126.9 cm/s PALLAVI (VTI) 2.74 cm2 AV DI 0.79 % Mitral Valve MV E Velocity 70.6 cm/s MV Peak Gr. 3 mmHg MV DECEL TIME 332 ms MV A Velocity 109.5 cm/s MV PHT 60 ms E/A Ratio 0.6 MVA (PHT) 3.67 cm2 MV VMax 85.3 cm/s LEFT VENTRICLE Puny LV size with hyperdynamic function. Mild concentric hypertrophy without significant resting gradient. Cavity appears hypovolemic. LVEF is 75%.(best vis apically) RIGHT VENTRICLE RV is normal size with adequate function. Thickened RV free wall. RV apex dysfunction (see loop 24) ATRIA Left atrium is moderately dilated. AORTIC VALVE Trileaflet AV appears mildly sclerotic without stenosis or insufficiency. MITRAL VALVE Mild MV annular calcification without stenosis. Trace regurgitation. TRICUSPID VALVE TV appears structurally normal with trace regurgitation. PULMONIC VALVE Normal PV without stenosis, physiologic insufficiency. GREAT VESSELS Aortic root is mildly dilated. Ascending aorta is normal in size. PERICARDIUM Normal pericardium. No effusion. Prominent anterior epicardial fat pad. Other Information Study Quality: Fair DUE TO HABITUS. Limited subcostals, no SSN window Conclusion Puny LV size with hyperdynamic function. Mild concentric hypertrophy without significant resting gradient. Cavity appears hypovolemic. LVEF is 75%.(best vis apically) RV is normal size with adequate function. Thickened RV free wall. RV apex dysfunction. Left atrium is moderately dilated. Trileaflet AV appears mildly sclerotic without stenosis or insufficiency. Mild MV annular calcification without stenosis. Trace regurgitation. TV appears structurally normal with trace regurgitation. Aortic root is mildly dilated. Ascending aorta is normal in size. Normal pericardium. No effusion. Prominent anterior epicardial fat pad.
[2025-03-14] MEDS: methylPREDNISolone sod succ/PF 40mg inj. IV SCH (19:40)
[2025-03-14] MEDS: heparin, porcine 5000 units/ml vial SQ SCH (19:57)
[2025-03-14] MEDS: docusate sod 100mg capsule PO SCH (19:58)
[2025-03-14] MEDS: K and/or MAG REPLACEMENT MC SCH (20:00)
[2025-03-14] MEDS: HALLS - SOOTHE MENTHOL 1.8 MG cough drop LOZENGE MM ONE (22:35)
[2025-03-15] VITALS (16 sets, daily range): BP systolic 122–173; BP diastolic 73–95; PULSE 73–97; RESP 13–24; TEMP 97–98.1; O2SAT 92–96
[2025-03-15] MEDS: guaiFENesin ER 600mg tablet PO SCH
[2025-03-15] MEDS: hydrALAZINE 20mg/ml inj. IV ONE ×2 (02:35→04:19)
[2025-03-15 05:44] LABS: MEAN PLATELET VOLUME 7.2 FL (7.4-10.4); RED CELL DISTRIBUTION WIDTH 16.0 % (11.5-14.5)
[2025-03-15 06:08] LABS: CHOL/HDL RATIO 2.8 (0.00-4.99); CREATININE 1.27 MG/DL (0.60-1.10); LDL CHOLESTEROL 94 MG/DL (50-100); TOTAL CARBON DIOXIDE 21.6 MMOL/L (24-32); eCRCL 37 ML/MIN; eGFR 54 ML/MIN
[2025-03-15] MEDS ORDERED: warfarin 2.5mg tablet PO SCH (08:00)
[2025-03-15] MEDS: levoTHYROXINE 25mcg tablet PO SCH (08:10)
[2025-03-15] MEDS: lactobacillus rhamnosus 10,000 MMU CELLS/CAPSULE PO SCH (08:10)
[2025-03-15 09:47] LABS: INR 1.7 INR
--- NOTE | 2025-03-15 12:31 | PROGRESS NOTE- Residence ---
Progress Note - Resident Providers to CC Resident Creating Document: THIAGO JOHNS CC: YAZMIN MAGDALENO MD ~ Antibiotic Timeout Antibiotic Ordered?: Yes Subjective Patient was seen and examined at bedside today. Patient reports to be feeling better, cough has improved compared to yesterday, in pain from coughing is also slightly better. Family at bedside, we discussed lengthy treatment plan and expectations. I answered all their questions. Objective Vital Signs Date Time Temp Pulse Resp B/P (MAP) Pulse Ox O2 Delivery O2 Flow Rate FiO2 03/15/25 11:41 97.8 86 18 165/82 (109) 96 Room Air 03/15/25 10:44 0.0 03/15/25 10:36 21 Result Diagram: 03/15/25 0503 03/15/25 0503 General: awake, alert oriented to place, time, and person HEENT: Hard of hearing, No pallor present, no icterus, moist mucous membranes Neck: No masses and tenderness Resp: Mildly labored. Scattered wheezes bilaterally. Chest: Limited expansion due to nagging cough Cardiovascular: regular rate and rhythm, normal S1 and S2, soft systolic murmur, no rub or gallop Abdomen: Soft and nontender, no organomegaly, no guarding and rigidity, bowel sounds present Neuro: No focal weakness in the upper and lower limb muscles, power of the muscles 5/5 bilateral upper and lower extremities, normal reflexes bilaterally. Cranial nerves intact Extremities: 1+ lower extremity edema. No cyanosis,clubbing or edema Skin: Warm and Dry. No lesions Psych: Normal affect and mood. Cooperative with exam Coagulation Studies Laboratory Tests Test 03/14/25 08:13 03/15/25 09:26 Activated Partial Thromboplast Time 33 SECONDS (22-32) H Prothrombin Time 16.6 SECONDS (9.0-12.0) H INR International Normalized Ratio 1.7 INR Coagulation Comments Plan Plan Patient is a 84-year-old male with multiple medical conditions, on daily prednisone for spinal stenosis and prior pneumonia this year, admitted for evaluation and management of pneumonia with failed outpatient treatment. Sepsis 2/2 bacterial pneumonia, community-acquired COPD/emphysema, in exacerbation Patient remained hemodynamically stable, with no oxygen requirement in ED White count and lactic are elevated, procalcitonin is normal Influenza and COVID tests are negative Wells score with low probability for PE. Patient is on warfarin Chest x-ray shows mild pulmonary congestion CT scan of the chest shows emphysematous changes but no consolidations Preliminary blood cultures are negative Received ceftriaxone and levofloxacin, 1L of IVNS and 125mg of Solu-Medrol in ED Continue Solu-Medrol 60 mg b.i.d., hold home prednisone We will decrease IV NS rate to 75 cc/hour Continue Zosyn, day 2 Continue Mucinex Continue DuoNebs q.4 scheduled and q.2h p.r.n. Incentive spirometer Q 1 hour Monitor for signs of fluid overload Continue monitoring white count and lactic acid Chronic heart failure with preserved ejection fraction, not in exacerbation Hypertrophic cardiomyopathy Paroxysmal Atrial fibrillation, currently NSR Hypertension Echocardiogram shows hyperdynamic left ventricle with the EF of 75% Will continue home medications once med rec is completed Continue amiodarone 200 mg daily Continue losartan 100 mg daily Continue warfarin Monitor PT INR CKD III Creatinine is at baseline Continue monitoring CMP Spinal stenosis Osteoarthritis Continue home tramadol p.r.n. Hold home prednisone Hypothyroidism TSH normal Will continue monitoring No medications in med rec Insomnia Continue home Ambien Code Status: DNR DVT prophylaxis: Heparin Analgesia/sedation: Tramadol Nutrition: Heart healthy diet PT: Ordered Prognosis: Guarded Disposition: Continue care in PCU with tele monitoring. Continue medical management Thiago Dumont MD Internal Medicine Resident PGY-2 Date of Service: Mar 15, 2025 Billing Provider: YAZMIN MAGDALENO MD Common Visit Codes: [id number] INP/OBS CARE(HIGH) THIAGO JOHNS ESDRAS Mar 15, 2025 12:31 YAZMIN MAGDALENO MD Mar 19, 2025 14:35
[2025-03-15] MEDS: warfarin 1mg tablet PO ONE (20:13)
[2025-03-15] MEDS ORDERED: haloperidol lactate 5mg/ml inj IM ONE (21:45)
[2025-03-15] MEDS: haloperidol lactate 5mg/ml inj IM ONE (21:58)
[2025-03-15] MEDS: HALLS - SOOTHE MENTHOL 1.8 MG cough drop LOZENGE MM ONE (22:02)
[2025-03-15] MEDS: diazepam inj 5 MG/ML inj. IV ONE (22:56)
[2025-03-16] VITALS (17 sets, daily range): BP systolic 123–171; BP diastolic 65–98; PULSE 55–112; RESP 16–24; TEMP 96.8–97.4; O2SAT 85–99
[2025-03-16] MEDS: diazepam inj 5 MG/ML inj. IV ONE (00:25)
[2025-03-16] MEDS: diazepam inj 5 MG/ML inj. IM ONE (03:18)
[2025-03-16] MEDS: haloperidol lactate 5mg/ml inj IM ONE (05:26)
[2025-03-16] MEDS: flumazenil 0.1 mg/ml inj. 10mL vial IV ONE (09:07)
[2025-03-16 11:31] LABS: MEAN PLATELET VOLUME 6.7 FL (7.4-10.4); RED CELL DISTRIBUTION WIDTH 15.5 % (11.5-14.5)
[2025-03-16 11:43] LABS: INR 1.7 INR
[2025-03-16 11:49] LABS: CREATININE 1.29 MG/DL (0.60-1.10); TOTAL CARBON DIOXIDE 27.3 MMOL/L (24-32); eCRCL 36 ML/MIN; eGFR 53 ML/MIN
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
--- NOTE | 2025-03-16 17:58 | RADIOLOGY REPORT ---
CT CT HEAD INDICATION: Confusion COMPARISON: None TECHNIQUE: CT of the head without intravenous contrast. RADIATION DOSE: CTDIvol: 66 mGy, DLP: 1283 mGy*cm FINDINGS: There is no evidence of acute intracranial hemorrhage, extra-axial collection, mass effect, midline shift, herniation or hydrocephalus. The ventricles, sulci and cisterns are age appropriate. The newell-white differentiation is intact. The visualized paranasal sinuses and mastoid air cells are clear. The surrounding soft tissues and osseous structures are unremarkable. IMPRESSION: 1. No evidence of acute intracranial hemorrhage, mass effect or hydrocephalus.
[2025-03-16] MEDS: Ensure Enlive - 237ML PO SCH (18:00)
[2025-03-16] MEDS ORDERED: methylPREDNISolone sod succ/PF 40mg inj. IV SCH (20:00)
[2025-03-16] MEDS: HALLS - SOOTHE MENTHOL 1.8 MG cough drop LOZENGE MM ONE (20:00)
[2025-03-16] MEDS: ipratropium/albuterol 3ml nebule NEB SCH (20:38)
[2025-03-16 20:55] LABS: LEUKOCYTE ESTERASE ,URINE NEGATIVE (Neg); NITRITES, URINE NEGATIVE (Neg); OCCULT BLOOD,URINE NEGATIVE (Neg)
[2025-03-16 20:59] LABS: UA COLLECTION TYPE NON-SPECIFIED
[2025-03-16] MEDS: warfarin 1mg tablet PO ONE (21:47)
[2025-03-17] VITALS (8 sets, daily range): BP systolic 123–136; BP diastolic 63–78; PULSE 80–95; RESP 16–20; TEMP 97–98.4; O2SAT 94–98
[2025-03-17 08:06] LABS: MEAN PLATELET VOLUME 7.1 FL (7.4-10.4); RED CELL DISTRIBUTION WIDTH 15.9 % (11.5-14.5)
[2025-03-17] MEDS: methylPREDNISolone sod succ/PF 40mg inj. IV SCH (08:12)
[2025-03-17 08:24] LABS: INR 2.0 INR
[2025-03-17 08:31] LABS: CREATININE 1.54 MG/DL (0.60-1.10); TOTAL CARBON DIOXIDE 24.9 MMOL/L (24-32); eCRCL 30 ML/MIN; eGFR 43 ML/MIN
[2025-03-17] MEDS ORDERED: ALBU8HFA PO (10:34)
[2025-03-17] MEDS ORDERED: BUDE10.22 INH (10:34)
[2025-03-17] MEDS ORDERED: LOSA50TA64 PO (10:34)
[2025-03-17] MEDS ORDERED: GUAI600T45 PO (10:34)
[2025-03-17] MEDS ORDERED: LEVO750T68 PO (10:34)
[2025-03-17] MEDS ORDERED: PRED10TA PO (10:34)
--- NOTE | 2025-03-17 15:11 | DISCHARGE SUMMARY-Residence ---
Discharge Summary Providers to Resident Creating Document: EMMANUEL SCHMITZ, RES ~ Discharge Summary Admission Diagnosis: COPD exacerbation Hospital Course DATE OF ADMISSION: 03/14/2025 DATE OF DISCHARGE: 03/17/2025 ECHO: Conclusion Puny LV size with hyperdynamic function. Mild concentric hypertrophy without significant resting gradient. Cavity appears hypovolemic. LVEF is 75%.(best vis apically) RV is normal size with adequate function. Thickened RV free wall. RV apex dysfunction. Left atrium is moderately dilated. Trileaflet AV appears mildly sclerotic without stenosis or insufficiency. Mild MV annular calcification without stenosis. Trace regurgitation. TV appears structurally normal with trace regurgitation. Aortic root is mildly dilated. Ascending aorta is normal in size. Normal pericardium. No effusion. Prominent anterior epicardial fat pad. CT chest: IMPRESSION: Limited evaluation without contrast. No pulmonary airspace consolidation. Pulmonary emphysematous changes. 4 mm right upper lobe solid pulmonary nodule. Recommend follow-up per Fleischner society criteria guidelines. Coronary artery calcification disease. Other findings as described. CT head: IMPRESSION: 1. No evidence of acute intracranial hemorrhage, mass effect or hydrocephalus. Discharge Diagnosis\Comment: Acute hypoxemic respiratory failure Sepsis secondary to bacterial pneumonia, community-acquired COPD/emphysema in exacerbation Altered level of consciousness Hospital delirium Benzodiazepine sensitivity Steroid psychosis Congestive heart failure with preserved ejection fraction Hypertrophic cardiomyopathy Paroxysmal atrial fibrillation Hypertension CKD stage 3 Spinal stenosis Osteoarthritis Hypothyroidism Insomnia Operations\Procedures: None Consultants: None Complications: None Condition on DC: Stable New Medications: albuterol inhaler (Pro-Air Inhaler) 8.5 Gm Inhaler 1-2 PUFFS PO Q4H PRN for shortness of breath, #1 INH Budesonide/Formoterol Fumarate (Symbicort 80-4.5 Mcg Inhaler) 80 Mcg-4.5 Mcg/Act uation Hfa.aer.ad 2 PUFFS INH Q12H for 30 Days, #2 UNIT 0 Refills Levofloxacin (Levofloxacin) 750 Mg Tablet 1 TAB PO DAILY for 5 Days, #5 TAB Guaifenesin (Mucinex) 600 Mg Tablet.sa 600 MG PO Q8H for 7 Days, #21 TAB.SR Losartan Potassium (Losartan Potassium) 50 Mg Tablet 100 MG PO DAILY for 30 Days, #60 TAB Changed Medications: Prednisone (Prednisone) 10 Mg Tablet 0 PO BID for 30 Days, #70 TAB (Changed from: Removed Units) Take 4 tablets daily for next 5 days for pneumonia. Then continue back on prednisone 10 mg twice daily as recommended by your PCP. Continued Medications: Amiodarone Hcl (Cordarone) 200 Mg Tablet 1 TAB PO DAILY, TAB Atorvastatin Calcium (Atorvastatin Calcium) 40 Mg Tablet 1 TAB PO DAILY Cyclobenzaprine HCl (Cyclobenzaprine HCl) 5 Mg Tablet 1 TAB PO HS PRN for pain Levothyroxine Sodium (Levoxyl) 50 Mcg Tablet 1 TAB PO DAILY Pantoprazole Sodium (Pantoprazole Sodium) 40 Mg Tablet.dr WEBER Sertraline HCl (Sertraline HCl) 25 Mg Tablet 1 TAB PO DAILY Tramadol Hcl (Tramadol Hcl) 50 Mg Tablet Warfarin Sodium (Warfarin Sodium) 2.5 Mg Tablet 1 TAB PO DAILY Discontinued Medications: Zolpidem Tartrate* (Ambien*) 10 Mg Tablet Discharge Summary: History of Present Illness Patient is an 84-year-old male with a history of CHF, AFib, spinal stenosis, osteoarthritis and hypothyroidism who came to the ED due to increasing shortness of breath and cough. Patient report that he initially started with a nagging cough, productive of scant yellow sputum on Wednesday02/28/2025, on Wednesday of that week he attended [facility], where after evaluation was discharged home without treatment. He states he was posteriorly he received a call regarding his chest x-rays results and he was started on oral azithromycin which she took for 5 days without improvement. Patient was also prescribed a round of Augmentin which he was supposed to start today, but decided to come to our ER instead. Patient also reports that since onset of symptoms he has been experiencing worsened shortness of breath at rest, exacerbated by walking, accompanied with orthopnea, he denies PND. He does report being fatigued which along with shortness of breaths has limited his ability to walk, even using his walker. He denies fevers or chills. His daughter does report he had another episode of pneumonia in December which resolved with azithromycin. In ED, patient received IV ceftriaxone and levofloxacin, as well as breathing treatment with DuoNeb and 1 L of IV NS. Course in the hospital: On initial examination the patient appears to be in acute respiratory distress, examination was significant for bilateral crackles. The patient was started on broad-spectrum IV antibiotics-IV Zosyn. Was started on IV Solu-Medrol 125 mg once followed by 60 mg t.i.d. and was treated with the IV fluids for hydration and maintenance. The patient also treated units supportive care with the DuoNeb nebulizations q.4 hours followed by as needed nebulizations q.2 hours for shortness of breath and wheezing. Pulmonary physical therapy with the incentive spirometer was recommended. At night the patient received Geodon in view of his history of insomnia after which the patient showed signs of severe hospital- acquired delirium and was treated with the IV benzodiazepine and haloperidol. The patient later developed some respiratory depression and was treated with flumazenil. In view of the patient's benzodiazepine sensitivity we have held all benzodiazepines. The patient was continued to be monitored in the the hospital. He was on telemetry and the patient was noted to be in sinus rhythm. No AFib with RVR noted during the hospitalization. He showed signs of sleep apnea and was recommended to follow up outpatient and get a sleep study done. The patient had CKD stage III and his daughters at the bedside reported that they knew that he had decreased renal function. We recommended the patient to follow up with his PCP and get referral for spike machine heater. His condition improved significantly and he was stable on room air. The patient is being discharged home on oral antibiotics-levofloxacin 750 mg p.o. daily for five more days. We also added inhalers in view of the patient's COPD and recommended the patient to get a pulmonary function test done with the PCP. His condition is stable at the time of discharge. Examination at discharge: General: Awake, alert and oriented to time place and person. HEENT: Hard of hearing, No pallor present, no icterus, moist mucous membranes Neck: No masses and tenderness Resp: Mild rhonchi who would in the left lower lung base. No wheezing heard. Cardiovascular: regular rate and rhythm, normal S1 and S2, soft systolic murmur, no rub or gallop Abdomen: Soft and nontender, no organomegaly, no guarding and rigidity, bowel sounds present Neuro: No focal weakness in the upper and lower limb muscles, power of the muscles 5/5 bilateral upper and lower extremities, normal reflexes bilaterally. Cranial nerves intact Extremities:No cyanosis,clubbing or edema Skin: Warm and Dry. Small Lacerations noted on lower and upper extremities. Psych: Normal affect and mood. Cooperative with exam. Laboratory Tests Test 03/16/25 11:22 03/16/25 20:00 03/17/25 07:27 White Blood Count 14.3 X10'3 11.2 X10'3 Red Blood Count 4.37 X10'6 4.46 X10'6 Hemoglobin 13.3 g/dl 13.7 g/dl Hematocrit 38.9 % 39.8 % Mean Corpuscular Volume 89.0 FL 89.2 FL Mean Corpuscular Hemoglobin 30.5 PG 30.7 PG Mean Corpuscular Hemoglobin Concent 34.3 g/dL 34.4 g/dL Red Cell Distribution Width 15.5 % 15.9 % Platelet Count 189 X10'3 192 X10'3 Mean Platelet Volume 6.7 FL 7.1 FL Neutrophils (%) (Auto) 89.2 % 80.9 % Lymphocytes (%) (Auto) 5.1 % 12.1 % Monocytes (%) (Auto) 5.5 % 6.4 % Eosinophils (%) (Auto) 0 % 0.5 % Basophils (%) (Auto) 0.2 % 0.1 % Neutrophils # (Auto) 12.7 X10'3 9.1 X10'3 Lymphocytes # (Auto) 0.7 X10'3 1.4 X10'3 Monocytes # (Auto) 0.8 X10'3 0.7 X10'3 Eosinophils # (Auto) 0.0 X10'3 0.1 X10'3 Basophils # (Auto) 0.0 X10'3 0.0 X10'3 CBC Comment Prothrombin Time 16.7 SECONDS 18.9 SECONDS INR International Normalized Ratio 1.7 INR 2.0 INR Coagulation Comments Sodium Level 144 MMOL/L 143 MMOL/L Potassium Level 4.1 MMOL/L 3.2 MMOL/L Chloride Level 113 MMOL/L 111 MMOL/L Carbon Dioxide Level 27.3 MMOL/L 24.9 MMOL/L Anion Gap 4 7 Blood Urea Nitrogen 26 MG/DL 24 MG/DL Creatinine 1.29 MG/DL 1.54 MG/DL Estimated GFR/1.73 m2 53 ML/MIN 43 ML/MIN BUN/Creatinine Ratio 20.2 15.6 Glucose Level 123 MG/DL 98 MG/DL Calcium Level 8.7 MG/DL 8.4 MG/DL Total Bilirubin 0.8 MG/DL 0.9 MG/DL Aspartate Amino Transf (AST/SGOT) 40 U/L 39 U/L Alanine Aminotransferase (ALT/SGPT) 45 U/L 50 U/L Alkaline Phosphatase 92 IU/L 102 IU/L Total Protein 5.8 G/DL 5.9 G/DL Albumin 2.8 G/DL 2.9 G/DL Globulin 3.0 G/DL 3.0 G/DL Albumin/Globulin Ratio 0.9 1.0 Chemistry Comments Urine Specimen Description Non-specified Urine Color Yellow Urine Clarity Clear Urine pH 6.0 Urine Specific [place] 1.010 Urine Protein Negative mg/dl Urine Glucose (UA) Negative mg/dl Urine Ketones Negative mg/dl Urine Occult Blood Negative Urine Nitrite Negative Urine Bilirubin Negative Urine Urobilinogen 0.2 E.U/dL Urine Leukocyte Esterase Negative Urine Culture Indicated Not ind Volume Urine Centrifuged 10 ml Urine Comment Magnesium Level 1.8 MG/DL *Problems/Diagnosis: (1) CHF (congestive heart failure) (2) COPD exacerbation (3) Emphysema lung (4) Delirium (5) DJD (degenerative joint disease) Status: Chronic Permanent Comment: Right total hip arthroplasty 07/20/2017 Last Edited By: Marya ALVA on Jul 21, 2017 06:17 (6) HTN (hypertension) Status: Chronic (7) Diverticulitis Status: Acute (8) Acute exacerbation of chronic obstructive airways disease Status: Acute (9) Chronic back pain Status: Chronic Total Time Spent on D/C: > 30 Minutes Date of Service: Mar 17, 2025 Billing Provider: YAZMIN MAGDALENO MD Common Visit Codes: [id number] DISCH DAY >30min EMMANUEL SCHMITZ, RES Mar 17, 2025 14:47 YAZMIN MAGDALENO MD Mar 19, 2025 14:35
[2025-03-17] MEDS ORDERED: warfarin 1mg tablet PO ONE (21:00)
== END 2025-03-17 12:19 | disposition home or self-care (01) | DRG 871 ==
LOC: ER 07:44 → ED HOLD 10:35 → PCU 3S 15:32
PROVIDERS: ADMIT Family Medicine; ATTEND Family Medicine
DX: A41.89 Other specified sepsis (principal); J15.9 Unspecified bacterial pneumonia; J96.01 Acute respiratory failure with hypoxia; I50.32 Chronic diastolic (congestive) heart failure; I13.0 Hypertensive heart and chronic kidney disease with heart failure and stage 1 through stage 4 chronic kidney disease, or unspecified chronic kidney disease; I42.2 Other hypertrophic cardiomyopathy; Z66 Do not resuscitate; F29 Unspecified psychosis not due to a substance or known physiological condition; J44.0 Chronic obstructive pulmonary disease with (acute) lower respiratory infection; E03.9 Hypothyroidism, unspecified; N18.30 Chronic kidney disease, stage 3 unspecified; E11.22 Type 2 diabetes mellitus with diabetic chronic kidney disease; J44.1 Chronic obstructive pulmonary disease with (acute) exacerbation; Z20.822 Contact with and (suspected) exposure to COVID-19; R41.0 Disorientation, unspecified; I48.0 Paroxysmal atrial fibrillation; G47.30 Sleep apnea, unspecified; G47.00 Insomnia, unspecified; E78.5 Hyperlipidemia, unspecified; T38.0X5A Adverse effect of glucocorticoids and synthetic analogues, initial encounter; Z88.1 Allergy status to other antibiotic agents; Z79.899 Other long term (current) drug therapy; Z90.49 Acquired absence of other specified parts of digestive tract; Z82.3 Family history of stroke; Y92.89 Other specified places as the place of occurrence of the external cause
CPT/HCPCS: 36415; 70450; 71045; 71250; 80048; 80053; 80061; 81003; 83036; 83605; 83735; 83880; 84145; 84443; 84484; 85025; 85610; 85730; 87040; 87081; 87088; 87804; 87811; 93005; 93306; 94640; 94760; 96365; 96367; 96375; 99285; A4615; A6258; A6446; A6449; G0378; J0360; J0696; J1630; J1644; J1938; J1956; J2270; J2543; J2919; J3360; J3490; J7030; J7040

== ENCOUNTER 2025-03-22 10:47 | Outpatient (CLI) | payer MEDICARE, MEDICAID ==
[~2025-03-22 10:47] MED LIST changes: +ALBU8HFA PO; +AMIO200T76 PO; -AMLO10TA13; -ASPI-1 PO; +ATOR40TA72 PO; +BUDE10.22 INH; +CYCL-920 PO; -DICL75TA6; +GUAI600T45 PO; -HYDR-3972; +LEVO50TA66 PO; +LEVO750T68 PO; +LOSA50TA64 PO; -LOVA40TA2 PO; -METF-1203; -OMEP-419 PO; -ONDA4TAB6 PO; +PRED10TA PO; +SERT-432 PO; +WARF2.5T82 PO; -ZOLP10TA5
[2025-03-22 11:21] LABS: MEAN PLATELET VOLUME 7.1 FL (7.4-10.4); RED CELL DISTRIBUTION WIDTH 15.8 % (11.5-14.5)
[2025-03-22 11:57] LABS: % IRON SATURATION 30 % (11-46); CREATININE 1.28 MG/DL (0.60-1.10); CRP-CARDIAC RISK 2.480 MG/L; LACTATE DEHYDROGENASE 377 U/L (85-227); PRO BRAIN NATRIURETIC PEPTIDE 572 PG/ML (0-450); TOTAL CARBON DIOXIDE 28.1 MMOL/L (24-32); eGFR 54 ML/MIN
[2025-03-22 11:58] LABS: BANDS% (MANUAL) 1.0 % (0-10); EOSINOPHILS % (MANUAL) 1.0 % (0-6); LYMPHOCYTES % (MANUAL) 7.0 % (21-51); METAMYLEOCYTES% (MANUAL) 1.0 % (0-0); MONOCYTES % (MANUAL) 6.0 % (2-12); NEUTROPHILS % (MANUAL) 84.0 % (42-75)
[2025-03-22 11:59] LABS: PLATELET ESTIMATE NORMAL
--- NOTE | 2025-03-22 12:04 | RADIOLOGY REPORT ---
DI CHEST,TWO VIEWS CLINICAL HISTORY: PNEUMONIA DUE TO INFECTIONS ORGANISM, UNSPECIFIED COMPARISON: CT CT CHEST on DOS: 03/14/25, DI CHEST,SINGLE VIEW on DOS: 03/14/25, XR CHEST 2 VIEWS - AR on DOS: 03/13/25, XR CHEST 2 VIEWS - AR on DOS: 03/09/25, DI CHEST,SINGLE VIEW on DOS: 12/16/23 TECHNIQUE: Frontal and lateral view of the chest was obtained FINDINGS: Lines and Tubes: None Lungs: No focal consolidation. Pleura: No effusion. No pneumothorax. Cardiomediastinal contours: Unremarkable Bones: No acute osseous abnormality. IMPRESSION: No acute cardiopulmonary disease.
== END 2025-03-22 23:59 | disposition home or self-care (01) ==
LOC: RAD 10:47
PROVIDERS: ATTEND Physician Assistant
DX: I13.0 Hypertensive heart and chronic kidney disease with heart failure and stage 1 through stage 4 chronic kidney disease, or unspecified chronic kidney disease (principal); J18.9 Pneumonia, unspecified organism; R73.9 Hyperglycemia, unspecified; I50.9 Heart failure, unspecified; D64.9 Anemia, unspecified; E03.9 Hypothyroidism, unspecified; N18.30 Chronic kidney disease, stage 3 unspecified; M62.81 Muscle weakness (generalized); R91.1 Solitary pulmonary nodule
CPT/HCPCS: 36415; 71046; 80053; 82550; 82728; 83036; 83540; 83550; 83615; 83880; 84436; 84443; 85007; 85025; 86140